=== PATIENT | female | born 1995 | race Caucasian/White ===

== ENCOUNTER 2018-08-02 10:22 | Emergency (ER) | payer OTHER ==
--- NOTE | 2018-08-02 10:48 | Emergency Department Record ---
History of Present Illness - General Chief Complaint: Abdominal Pain Stated Complaint: ABD PAIN Time Seen by Provider: 08/02/18 10:41 Source: Patient, RN notes reviewed Mode of Arrival: Ambulatory - History of Present Illness Initial Comments: lower abdominal pain more on the left side than the right side and she was seen at [facility] and she had a neg urine and neg rine test. Onset/Timin -: Hour(s) Location: Diffuse Radiation: None Migration to: No migration Severity: Moderate Severity scale (1-10): 7 Quality: Sharp Consistency: Constant Improves With: Nothing Worsens With: Nothing Associated Symptoms: Nausea - Related Data LMP Date: 07/15/18 Previous Rx's Medication Instructions Recorded Naproxen [Naprosyn] 500 mg PO Q12H #20 tab 08/02/18 Allergies Allergy/AdvReac Type Severity Reaction Status Date / Time No Known Allergies Allergy no Verified 08/02/18 11:16 allergies Travel Screening - Travel/Exposure Within Last 30 Days Have you traveled within the last 30 days?: No Review of Systems Reviewed: No additional complaints except as noted below Constitutional: Reports: As per HPI. Denies: Chills, Fever, Malaise, Night sweats, Weakness, Weight change Eyes: Reports: As per HPI. Denies: Eye discharge, Eye pain, Photophobia, Vision change ENT: Reports: As per HPI. Denies: Congestion, Dental pain, Ear pain, Epistaxis , Hearing loss, Throat pain Respiratory: Reports: As per HPI. Denies: Cough, Dyspnea, Hemoptysis, Stridor, Wheezes Cardiovascular: Reports: As per HPI. Denies: Arrhythmia, Chest pain, Dyspnea on exertion, Edema, Murmurs, Orthopnea, Palpitations, Paroxysmal nocturnal dyspnea, Rheumatic Fever, Syncope Endocrine: Reports: As per HPI. Denies: Fatigue, Heat or cold intolerance, Polydipsia, Polyuria Gastrointestinal: Reports: As per HPI, Abdominal pain. Denies: Constipation, Diarrhea, Hematemesis, Hematochezia, Melena, Nausea, Vomiting Genitourinary: Reports: As per HPI. Denies: Abnormal menses, Discharge, Dyspareunia, Dysuria, Frequency, Hematuria, Incontinence, Retention, Urgency Musculoskeletal: Reports: As per HPI. Denies: Arthralgia, Back pain, Gout, Joint swelling, Myalgia, Neck pain Skin: Reports: As per HPI. Denies: Bruising, Change in color, Change in hair/ nails, Lesions, Pruritus, Rash Neurological: Reports: As per HPI. Denies: Abnormal gait, Confusion, Headache, Numbness, Paresthesias, Seizure, Tingling, Tremors, Vertigo, Weakness Psychiatric: Reports: As per HPI. Denies: Anxiety, Auditory hallucinations, Depression, Homicidal thoughts, Suicidal thoughts, Visual hallucinations Hematological/Lymphatic: Reports: As per HPI. Denies: Anemia, Blood Clots, Easy bleeding, Easy bruising, Swollen glands Past Medical History - SOCIAL HISTORY Smoking Status: Never smoker Alcohol Use: None Drug Use: None - RESPIRATORY Hx Respiratory Disorders: No - CARDIOVASCULAR Hx Cardio Disorders: No - NEURO Hx Neuro Disorders: No - GI Hx GI Disorders: No - Hx Genitourinary Disorders: No - ENDOCRINE Hx Endocrine Disorders: No - MUSCULOSKELETAL Hx Musculoskeletal Disorders: No - PSYCH Hx Psych Problems: Yes Hx Anxiety: Yes - HEMATOLOGY/ONCOLOGY Hx Hematology/Oncology Disorders: No Family Medical History Any Significant Family History?: No Physical Exam - General General Appearance: Alert, Oriented x3, Cooperative, No acute distress - Head Head exam: Normal inspection - Eye Eye exam: Normal appearance, PERRL Pupils: Normal accommodation - ENT ENT exam: Normal exam, Mucous membranes moist, Normal external ear exam, Normal orophraynx, TM's normal bilaterally Ear exam: Normal external inspection. negative: External canal tenderness Nasal Exam: Normal inspection. negative: Discharge, Sinus tenderness Mouth exam: Normal external inspection, Tongue normal Teeth exam: Normal inspection. negative: Dental caries Throat exam: Normal inspection. negative: Tonsillar erythema, Tonsillar exudate - Neck Neck exam: Normal inspection, Full ROM. negative: Tenderness - Respiratory Respiratory exam: Normal lung sounds bilaterally. negative: Respiratory distress - Cardiovascular Cardiovascular Exam: Regular rate, Normal rhythm, Normal heart sounds - GI/Abdominal GI/Abdominal exam: Soft, Normal bowel sounds, Tenderness (lower abdominal pain and worse on the left side) - Rectal Rectal exam: Deferred - exam: Deferred - Extremities Extremities exam: Normal inspection, Full ROM, Normal capillary refill. negative: Tenderness - Back Back exam: Reports: Normal inspection, Full ROM. Denies: Muscle spasm, Rash noted, Tenderness - Neurological Neurological exam: Alert, Normal gait, Oriented X3, Reflexes normal - Psychiatric Psychiatric exam: Normal affect, Normal mood - Skin Skin exam: Dry, Intact, Normal color, Warm Course Vital Signs 08/02/18 10:23 Temperature 98.4 F Pulse Rate 57 L Respiratory 18 Rate Blood Pressure 118/84 Pulse Ox 98 - Reevaluation(s) Reevaluation #1: 08/02/18 14:33 patient is feeling better Medical Decision Making - Data Complexity MDM Data: Labs Ordered and/or Reviewed, X-Ray Ordered and/or Reviewed (CT scan of abd essentially neg with scant fluid, US of pelvis essentially neg) - Lab Data Result diagrams: 08/02/18 10:30 08/02/18 10:30 Disposition Clinical Impression: Cystic disease of ovary Abdominal pain Qualifiers: Abdominal location: lower abdomen, unspecified Qualified Code(s): R10.30 - Lower abdominal pain, unspecified Disposition: Home, Self-Care Condition: (1) Good Instructions: Abdominal Pain (ED), Ruptured Ovarian Cyst (ED) Additional Instructions: follow up with family Dr in one 3 to 5 days Prescriptions: Naproxen [Naprosyn] 500 mg PO Q12H #20 tab.dr Forms: Patient Portal Access Time of Disposition: 14:09 Quality - Quality Measures Quality Measures: N/A - Blood Pressure Screening Does Patient Have Any of the Following: No Blood Pressure Classification: Pre-Hypertensive BP Reading Systolic Measurement: 118 Diastolic Measurement: 84 Screening for High Blood Pressure: < Pre-Hypertensive BP, F/U Documented > [ [id number]] Pre-Hypertensive Follow-up Interventions: Referral to alternative/primary care provider.
[2018-08-02] MEDS ORDERED: 0.9 % SODIUM CHLORIDE 1,000 ML BAG IV ONE (10:49)
[2018-08-02 11:02] LABS: BASO % 0.7 % (0-6); EOS % 5.8 % (0-6); GRAN % 62.9 % (47-80); HEMATOCRIT 39.7 % (35.0-47.0); LYMPH % 25.5 % (16-45); MEAN CELL VOLUME 91.9 fl (81-97); MEAN CORPUSCULAR HEMOGLOBIN 30.1 pg (27-33); MEAN CORPUSCULAR HGB CONC 32.7 g/dl (32-36); MEAN PLATELET VOLUME 9.5 fl (7.4-10.4); MONO % 5.1 % (0-9); PLATELET COUNT 258 K/uL (130-400); RED BLOOD COUNT 4.32 M/uL (3.80-5.40); RED CELL DISTRIBUTION WIDTH 12.2 % (11.5-14.5); WHITE BLOOD COUNT W/O DIFF 6.1 K/uL (4.2-12.2)
[2018-08-02 11:06] LABS: URINE APPEARANCE CLEAR; URINE BILIRUBIN NEGATIVE (NEGATIVE); URINE BLOOD NEGATIVE (NEGATIVE); URINE COLOR YELLOW; URINE GLUCOSE (UA) NEGATIVE (NEGATIVE); URINE KETONE NEGATIVE (NEGATIVE); URINE LEUKOCYTE ESTERASE NEGATIVE (NEGATIVE); URINE NITRITE NEGATIVE (NEGATIVE); URINE PROTEIN NEGATIVE (NEGATIVE); URINE UROBILINOGEN 0.2 E.U./dL (0.20 - 1.00)
[2018-08-02] MEDS ORDERED: KETOROLAC 30 MG/ML VIAL IVP ONE (11:11)
[2018-08-02 11:21] LABS: BLOOD UREA NITROGEN 12 mg/dL (6-20); CREATININE 0.8 mg/dL (0.5-0.9); EST GLOMERULAR FILTRATION RATE > 60 mL/min
[2018-08-02 11:24] LABS: GLUCOSE,RANDOM 98 mg/dL (74-109)
[2018-08-02 11:26] LABS: ALT/SGPT 27 U/L (<33); BILIRUBIN,DIRECT 0.2 mg/dL (0-0.3)
[2018-08-02 11:27] LABS: ALBUMIN 4.3 g/dL (4.0-5.0); ALKALINE PHOSPHATASE 32 U/L (35-104); AST/SGOT 44 U/L (10.0-35.0); LIPASE 31 U/L (13-60)
[2018-08-02] MEDS ORDERED: 0.9 % SODIUM CHLORIDE 1000ML 1,000 ML IV SCH (13:00)
--- NOTE | 2018-08-04 14:48 | CT SCAN REPORT ---
EXAM: CT SCAN ABDOMEN/PELVIS WO CONTRAST HISTORY: LEFT LOWER QUADRANT ABDOMINAL PAIN FOR ONE DAY. TECHNIQUE: Noncontrast CT of the abdomen and pelvis. COMPARISON: None. FINDINGS: The lung bases clear. Unremarkable noncontrast appearance of the liver, gallbladder, spleen, adrenal glands, and pancreas. No hydronephrosis. No calculi detected in the kidney, ureters, or urinary bladder. The urinary bladder is mildly distended. No focal colonic thickening or inflammatory change. Noninflamed air-containing appendix in the right lower quadrant. Stomach and small bowel are nondilated. No definite adenopathy is detected. Trace free fluid in the pelvis. No free air. Unremarkable noncontrast appearance of the uterus. No definite adnexal abnormalities detected on this noncontrast CT examination. Abdominal aorta appears nondilated. No definite acute osseous findings. IMPRESSION: 1. TRACE NONSPECIFIC FREE FLUID IN THE PELVIS. 2. OTHERWISE, UNREMARKABLE NONCONTRAST APPEARANCE OF THE ABDOMEN AND PELVIS WITH NO ACUTE ABNORMALITIES DETECTED. JOB NUMBER: [id number] MTDD
[2018-08-05 17:34] LABS: GC SPECIMEN TYPE Vaginal
--- NOTE | 2018-08-06 13:00 | ULTRASOUND REPORT ---
EXAM: PELVIC ULTRASOUND WITH TRANSVAGINAL HISTORY: PELVIC PAIN. TECHNIQUE: Routine pelvic ultrasound with transvaginal evaluation was obtained. Comparison: CT of the abdomen and pelvis 08/02/18. FINDINGS: The uterus measures 7.9 x 4.9 x 3.8 cm. The endometrium measures 0.7 cm in thickness. Tiny 2 mm echogenic focus along the anterior endometrium near the fundus, possibly a small calcification, of uncertain significance otherwise no focal uterine parenchymal abnormalities detected. The left ovary measures 3.8 x 2.4 x 1.4 cm. Unremarkable morphology. The right ovary measures 3.2 x 2.1 x 1.8 cm with small follicles. Bilateral intraovarian arterial waveforms are detected. No focal adnexal mass is seen. No significant free fluid appreciated by ultrasound. IMPRESSION: 1. NO EVIDENCE OF OVARIAN TORSION. 2. TINY 2 MM NONSPECIFIC ECHOGENIC FOCUS WITHIN THE UTERINE NEAR THE ENDOMETRIUM, POSSIBLY A CALCIFICATION OF UNCERTAIN CLINICAL SIGNIFICANCE. JOB NUMBER: [id number] MTDD
== END 2018-08-02 14:51 | disposition home or self-care (01) ==
LOC: ER 10:22
DX: R10.30 Lower abdominal pain, unspecified (principal); R11.0 Nausea
CPT/HCPCS: 99283 ×2; 96374; 83690; 85025; 80076; 80048; 81003; 76856; 76830; 74176; Q0111; J1885; 87210; J7030